=== PATIENT | female | born 1950 | race Caucasian/White ===

== ENCOUNTER 2017-05-03 12:48 | Inpatient (IN) ==
[2017-05-03 13:41] LABS: Basophils % 0.2 %; Hematocrit 42.1 % (35.3-44.9); Hemoglobin 14.3 g/dL (11.5-15.4); Immature Granulocytes % 0.3 % (0-4); Lymphocytes # 0.5 K/mcL (0.6-4.6); Lymphocytes % 8.7 %; Mean Corpuscular Hemoglobin 33.3 pg (28.0-33.3); Mean Corpuscular Volume 98.1 fL (83.0-100.0); Mean Platelet Volume 10.9 fL (9.4-12.4); Monocytes # 0.4 K/mcL (0.0-1.3); Monocytes % 6.5 %; Neutrophils # 4.9 K/mcL (1.6-8.9); Platelet Count 193 K/mcL (140-400); Red Blood Count 4.29 M/mcL (3.82-4.97); Red Cell Distribution Width 12.4 % (11.5-14.5); Segmented Neutrophils % 84.3 %
[2017-05-03 13:58] LABS: BUN/Creatinine Ratio 19 (6-26); Blood Urea Nitrogen 18 mg/dL (8-23); Calcium 9.5 mg/dL (8.6-10.3); Carbon Dioxide 30 mEq/L (23-29); Chloride 98 mEq/L (98-107); Glucose 114 mg/dL (70-105); Osmolality,Calculated 287 (280-300); Potassium 3.6 mEq/L (3.5-5.1); Sodium 137 mEq/L (136-145); eGFR For African Americans > 60 (> 60); eGFR For Non-African Americans > 60 (> 60)
[2017-05-03] MEDS ORDERED: Albuterol 2.5 MG/3 ML NEBULIZER IH ONE (14:01)
[2017-05-03] MEDS ORDERED: Ipratropium/Albuterol Neb 3 ML IH ONE (14:01)
[2017-05-03] MEDS ORDERED: Benzonatate 100 MG CAPSULE PO PRN (15:21)
[2017-05-03] MEDS ORDERED: methylPREDNISolone 125 MG/2 ML VIAL IVP ONE (15:22)
--- NOTE | 2017-05-03 16:11 | Emergency Department Note ---
Disposition Clinical Impression: COPD exacerbation, Hypoxia Disposition: Admitted As Inpatient Condition: Good SOB HPI - General Chief Complaint: ED Shortness of Breath/Dyspnea Stated Complaint: MORTEZA, cough Time Seen by Provider: 05/03/17 13:12 Source: patient Limitations: no limitations Nursing Notes Reviewed: Yes Vital Signs Reviewed: Yes - History of Present Illness Patient presents today for evaluation of shortness of breath and cough. Patient became sick earlier in March with a cold that she got over. Patient states that she felt good for a couple of days but has been feeling worse recently. Patient was seen by PCP earlier this week and placed on steroids as well as Levaquin. Patient has been taking this medication as prescribed and only has one day of medication left. Patient continues to feel worse with worsening cough. Patient's pulse ox is 94% resting in bed comfortably. She has never been diagnosed with COPD. But does smoke. She does not require home oxygen. She does have a nebulizer at home it has been but has been using nebulizers. She continues to use her inhaler multiple times a day with these medications. - Related Data Home Medications Medication Instructions Recorded Confirmed Aspirin Enteric Coated [Aspirin EC] 81 mg PO DAILY 05/03/17 05/03/17 Cholecalciferol (D-3) [Vitamin D] 1,000 unit PO DAILY 05/03/17 05/03/17 Lisinopril/Hydrochlorothiazide 1 each PO DAILY 05/03/17 05/03/17 [Zestoretic 20-12.5 mg Tablet] Multivit-Min/Iron/Folic/Lutein 1 each PO DAILY 05/03/17 05/03/17 [Centrum Silver Women Tablet] [place]-3/Dha/Epa/Fish Oil [Fish Oil 1,000 mg PO DAILY 05/03/17 05/03/17 1,000 mg Softgel] Paroxetine HCl [Paroxetine Cr] 12.5 mg PO DAILY 05/03/17 05/03/17 levoFLOXacin [Levofloxacin] 750 mg PO DAILY 05/03/17 05/03/17 predniSONE [PredniSONE] 20 mg PO BID 05/03/17 05/03/17 Allergies Allergy/AdvReac Type Severity Reaction Status Date / Time Sulfa (Sulfonamide Allergy Rash Verified 05/03/17 12:54 Antibiotics) Review of Systems: CONSTITUTIONAL: Night sweats No weight loss, weakness or fatigue. HEENT: Eyes: No visual changes. Ears, Nose, Throat: No hearing loss, difficulty talking or unable to swallow. SKIN: No rash or itching. CARDIOVASCULAR: No chest pain, chest pressure or chest discomfort. No palpitations or edema. RESPIRATORY: Shortness of breath and cough without sputum production GASTROINTESTINAL: No anorexia, nausea, vomiting or diarrhea. No abdominal pain or blood. GENITOURINARY: No burning on urination or hematuria. NEUROLOGICAL: No headache, dizziness, syncope, paralysis, ataxia, numbness or tingling in the extremities. No change in bowel or bladder control. MUSCULOSKELETAL: No muscle pain, back pain, joint pain or stiffness. Past Medical History - Past Medical History Medical history: Reports: cancer, hypertension Psychiatric history: Reports: depression - Social History Smoking Status: Former smoker Smokeless Tobacco Status: No Alcohol use: Reports: none Drug use: Reports: none Physical Exam General appearance: NAD, conversant Eyes: anicteric sclerae, moist conjunctivae; PERRL HENT: Atraumatic; oropharynx clear with moist mucous membranes and no mucosal ulcerations Neck: Normal inspection; Trachea midline; FROM, supple Lungs: Diffuse wheezing with associated rhonchi CV: RRR, no MRGs Abdomen: Soft, non-tender; no rebound or gaurding Extremities: No peripheral edema or extremity lymphadenopathy Skin: Normal temperature; no rash, ulcers or lesions Psych: Appropriate mood and affect Neuro: alert and oriented to person, place and time - General Limitations: no limitations General appearance: alert, in no apparent distress Course - Reevaluation(s) Reevaluation #1: Patient walked from the bed to the bathroom which was less than 10 steps and became hypoxic with a pulse ox of 88%. Patient will be admitted for hypoxia and likely COPD exacerbation. Blood work is unremarkable. EKG unremarkable. CTA negative for PE or pneumonia. - Consultations Consultation #1: Discussed with Dr. Kwadwo augustine. Vital Signs Temperature 98.1 F 05/03/17 12:51 Pulse Rate 96 05/03/17 12:51 Respiratory Rate 20 05/03/17 12:51 Blood Pressure 142/92 05/03/17 12:51 O2 Sat by Pulse Oximetry 94 05/03/17 12:51 Temperature 97.5 F L 05/03/17 18:46 Pulse Rate 72 05/03/17 18:12 Respiratory Rate 16 05/03/17 18:46 Blood Pressure 155/95 05/03/17 18:46 O2 Sat by Pulse Oximetry 96 05/03/17 18:12 Oxygen Delivery Oxygen Delivery Nasal Cannula Shortness of Breath/Dyspnea - Medical Records Medical records reviewed: Yes I reviewed the patient's medical records. - Lab Data Lab results reviewed: Yes I reviewed the patient's lab results. Result diagrams: 05/03/17 13:23 05/03/17 13:23 Lab Results 05/03/17 05/03/17 05/03/17 Range/Units 13:23 13:23 13:23 WBC 5.8 (4.3-11.1) K/mcL RBC 4.29 (3.82-4.97) M/mcL Hgb 14.3 (11.5-15.4) g/dL Hct 42.1 (35.3-44.9) % MCV 98.1 (83.0-100.0) fL MCH 33.3 (28.0-33.3) pg MCHC 34.0 (31.6-35.5) g/dL RDW 12.4 (11.5-14.5) % Plt Count 193 (140-400) K/mcL MPV 10.9 (9.4-12.4) fL Immature Gran % 0.3 (0-4) % Seg Neutrophils % 84.3 % Lymphocytes % 8.7 % Monocytes % 6.5 % Eosinophils % 0.0 % Basophils % 0.2 % Neutrophils # 4.9 (1.6-8.9) K/mcL Lymphocytes # 0.5 L (0.6-4.6) K/mcL Monocytes # 0.4 (0.0-1.3) K/mcL Eosinophils # 0.0 (0.0-0.6) K/mcL Basophils # 0.0 (0.0-0.2) K/mcL D-Dimer (0-500) ng/mLFEU Sodium 137 (136-145) mEq/L Potassium 3.6 (3.5-5.1) mEq/L Chloride 98 (98-107) mEq/L Carbon Dioxide 30 H (23-29) mEq/L BUN 18 (8-23) mg/dL Creatinine 0.93 (0.60-1.20) mg/dL Est GFR ( Amer) > 60 (> 60) Est GFR (Non-Af Amer) > 60 (> 60) BUN/Creatinine Ratio 19 (6-26) Glucose 114 H (70-105) mg/dL Calculated Osmolality 287 (280-300) Lactic Acid 1.8 (0.5-2.2) mmol/L Calcium 9.5 (8.6-10.3) mg/dL Troponin I (< 0.04) ng/mL B-Natriuretic Peptide (Less than 100) pg/mL 05/03/17 05/03/17 05/03/17 Range/Units 13:23 13:23 13:23 WBC (4.3-11.1) K/mcL RBC (3.82-4.97) M/mcL Hgb (11.5-15.4) g/dL Hct (35.3-44.9) % MCV (83.0-100.0) fL MCH (28.0-33.3) pg MCHC (31.6-35.5) g/dL RDW (11.5-14.5) % Plt Count (140-400) K/mcL MPV (9.4-12.4) fL Immature Gran % (0-4) % Seg Neutrophils % % Lymphocytes % % Monocytes % % Eosinophils % % Basophils % % Neutrophils # (1.6-8.9) K/mcL Lymphocytes # (0.6-4.6) K/mcL Monocytes # (0.0-1.3) K/mcL Eosinophils # (0.0-0.6) K/mcL Basophils # (0.0-0.2) K/mcL D-Dimer < 215 (0-500) ng/mLFEU Sodium (136-145) mEq/L Potassium (3.5-5.1) mEq/L Chloride (98-107) mEq/L Carbon Dioxide (23-29) mEq/L BUN (8-23) mg/dL Creatinine (0.60-1.20) mg/dL Est GFR ( Amer) (> 60) Est GFR (Non-Af Amer) (> 60) BUN/Creatinine Ratio (6-26) Glucose (70-105) mg/dL Calculated Osmolality (280-300) Lactic Acid (0.5-2.2) mmol/L Calcium (8.6-10.3) mg/dL Troponin I < 0.03 (< 0.04) ng/mL B-Natriuretic Peptide 10 (Less than 100) pg/mL - Radiology Data Radiology results reviewed: Yes I reviewed the patient's radiology results. - EKG Data EKG attestation: Yes I reviewed and interpreted this EKG. EKG results narrative: EKG shows sinus rhythm with ventricular 91. [place] interval 126. QRS 84. QTC 409. Patient has no significant ST elevations or depressions. No previous EKG for comparison. Attestation Statement - Attestation Attestation: I, Edu Aldana, examined this patient and my medical decision-making was reviewed with the CRANIOLOGIST/PA/Advanced Practice Nurse/Resident Physician. I agree with the documented findings, disposition and treatment plan as described except to the extent set forth below. 66-year-old female presents emergency Department with concerns of difficulty in breathing. Patient was evaluated by urgent care within the past week and given prescription of levofloxacin and prednisone which have mildly improved the patient's symptoms. Patient states her symptoms have not resolved she wanted further evaluation. Patient has wheezing in the bilateral posterior lung espinosa on evaluation emergency department. She desatted to 89% with minimal ambulation. CTA of the chest does not show evidence of PE. This is likely an acute COPD exacerbationand has a history of tobacco use. Patient given steroids and breathing treatments in the emergency department and will be admitted to the hospital for further care and evaluation.
[2017-05-03] MEDS ORDERED: Acetaminophen 325 MG TABLET PO PRN (20:41)
[2017-05-03] MEDS ORDERED: Naloxone 0.4 MG/ML INJ IVP PRN (20:41)
[2017-05-03] MEDS ORDERED: Ondansetron 4 MG/2 ML VIAL IVP PRN (20:41)
--- NOTE | 2017-05-03 20:47 | Event Note ---
Date of Encounter: 05/03/17 Time of Encounter: 20:46 1. Acute COPD exacerbation likely secondary to acute bacterial bronchitis Continue azithromycin, Solu-Medrol, DuoNeb nebs and oxygen therapy Influenza test to be performed 2. Hypertension, stable consider hydralazine IV as needed 3. Vitamin D deficiency, continue supplements 4. Depression, continue SSRI Patient will be admitted for observation. Full code. Time spent on this admission 40 minutes H&P will be completed by Corey Yeager NP
--- NOTE | 2017-05-03 20:54 | Internal Med History&Physical ---
<Corey Yeager - Last Filed: 05/03/17 21:33> Date of Encounter: 05/03/17 Time of Encounter: 20:00 Assessment and Plan (1) Acute exacerbation of COPD with asthma Current visit: Yes Status: Acute Acue exacerbation of COPD. Pt. reports worsening SOB since Wednesday as well as cough. Concern was for possible PE, but CTA negative. 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 Influenza A&B ordered. On exam, pts. lungs have wheezes present. Solu-Medrol 40 mg every 8. Azithromycin 500 mg daily for bronchitis coverage. DuoNeb's every 6 scheduled. Supplemental O2 titration and SPO2 monitoring when necessary. Pt. reports some dizziness w/ ambulation. Falls/safety precautions. Pt. discussed w/Dr. Fraga who is in agreement w/plan of care. Pt. is moderate risk for further morbidity and respiratory distress based on current sx, hx of tobacco abuse, and risk factors. Observation. (2) HTN (hypertension) Current visit: Yes Status: Chronic Hx of chronic HTN. Monitor pt. and VS. Continue patient's lisinopril/ hydrochlorothiazide. Consider adding IVP hydralazine if pt. becomes hypertensive. Qualifiers: Hypertension type: essential hypertension Qualified Code(s): I10 - Essential (primary) hypertension (3) Vitamin D deficiency Current visit: Yes Status: Chronic Hx of chronic vitamin D deficiency. Continue pts. vitamin D supplementation. Vitamin D level ordered in a.m. labs. (4) Depression Current visit: Yes Status: Chronic Hx of chronic depression. Continue pts. Paroxetine HCL. Qualifiers: Depression Type: unspecified Qualified Code(s): F32.9 - Major depressive disorder, single episode, unspecified (5) DVT prophylaxis Current visit: Yes Status: Acute Lovenox 40 mg 0600 for DVT prophylaxis. Monitor pt. for signs of bleeding. Internal Medicine - H&P: HPI Chief complaint: SOB/Dyspnea Admitted From: Emergency Dept Plans for Post Hospital Care: Home History of present illness: Ms. Hung is a 66 year old female with medical hx of HTN, previous breast cancer resulting in lumpectomy, COPD, vitamin D deficiency, and depression presents from the ED w/chief complaint of SOB and dyspnea. Pt. reports she has had intermittent SOB since April 02, but sx became worse on Wednesday with cough. Pt. reports sputum was sometimes blood-tinged d/t throat irritation but sputum is now clear to yellow. Pt. reports she went to Urgent Care and was told she had pneumonia and was placed on PO levaquin. Took all but one pill but sx worsened. Pt. reports some dizziness w/SOB but denies fever, chills, nausea, vomiting, headache, changes in vision, chest pain, palpitations, abdominal pain , diarrhea, constipation, lightheadedness, pre-syncope, or syncope. Past Med Surg Social Fam HX - Past Medical History Source: patient, old records reviewed Medical history: cancer (Breast cancer resulting in lumpectomy), hypertension Psychiatric history: depression - Social History Smoking Status: Former smoker Packs per day: 1/2 - 1 PPD - Reports quitting New Years Day Smokeless Tobacco Status: No Alcohol use: none Drug use: none Occupational status: employed Current living situation: Home Activity Level: Independent ambulation, Very active Recent Out of Country Travel Within the Last 8 Weeks: No Exposure or Possible Exposure to Illness During Travel: No - Family History Mother Race: Family Member Ethnicity: Non- Living Status: Age at : 81 Cause of : Glioblastoma Hx Family Cancer: Yes (Glioblastoma) Father Race: Family Member Ethnicity: Non- Living Status: Age at : 71 Cause of : Oat cell carcinoma Hx Family Cancer: Yes (Oat cell carcinoma) Brother Race: Family Member Ethnicity: Non- Living Status: Age at : 66 Cause of : Bladder cancer Hx Family Cancer: Yes (Bladder) Internal Medicine - H&P: Meds Aspirin Enteric Coated [Aspirin EC] 81 mg PO DAILY 05/03/17 [History] Cholecalciferol (D-3) [Vitamin D] 1,000 unit PO DAILY 05/03/17 [History] Lisinopril/Hydrochlorothiazide [Zestoretic 20-12.5 mg Tablet] 1 each PO DAILY [History] Multivit-Min/Iron/Folic/Lutein [Centrum Silver Women Tablet] 1 each PO DAILY 12/11 [History] [place]-3/Dha/Epa/Fish Oil [Fish Oil 1,000 mg Softgel] 1,000 mg PO DAILY 05/03/17 [History] Paroxetine HCl [Paroxetine Cr] 12.5 mg PO DAILY 05/03/17 [History] levoFLOXacin [Levofloxacin] 750 mg PO DAILY 05/03/17 [History] predniSONE [PredniSONE] 20 mg PO BID 05/03/17 [History] 3 Allergy/AdvReac Type Severity Reaction Status Date / Time Sulfa (Sulfonamide Allergy Rash Verified 05/03/17 12:54 Antibiotics) codeine AdvReac Gastrointestinal Verified 05/03/17 20:21 Upset All Systems PM: A 10-system review of systems was performed and is negative for pertinent findings except as documented above in the HPI. - Constitutional Constitutional: no chills, no fever(s), no night sweats - EENT Eyes: no change in vision, no discharge, no pain, no photophobia Ears: no ear discharge, no ear pain, no tinnitus Nose, mouth and throat: no dysphagia, no nasal discharge, no neck pain, no sore throat - Breasts Breasts: as per HPI - Cardiovascular Cardiovascular ROS IM: as per HPI, dyspnea, dyspnea on exertion, no chest pain, no diaphoresis, no lightheadedness, no palpitations, no syncope - Respiratory Respiratory: as per HPI, cough, dyspnea, dyspnea on exertion, wheezing, change in phlegm color, no excessive phlegm production - Gastrointestinal Gastrointestinal: no abdominal pain, no diarrhea, no hematemesis, no hematochezia, no melena, no nausea, no vomiting - Genitourinary Genitourinary: no change in urinary stream, no dysuria, no flank pain, no hematuria Menstruation: as per HPI - Musculoskeletal Musculoskeletal ROS IM: no numbness, no tingling - Integumentary Integumentary IM: no rash, no unusual bruising - Neurological Neurological ROS: as per HPI, dizziness, no confusion, no convulsions, no focal weakness, no numbness, no tingling, no tremor(s) - Psychiatric Psychiatric: as per HPI - Endocrine Endocrine IM: as per HPI - Hematologic/Lymphatic Hematologic/Lymphatic: no easy bruising - Allergic/Immunologic Allergic/Immunologic: as per HPI - Constitutional Vitals: Temp Pulse Resp BP Pulse Ox 97.5 F L 72 16 155/95 96 05/03/17 18:46 05/03/17 18:12 05/03/17 18:46 05/03/17 18:46 05/03/17 18:12 General appearance: Present: cooperative, mild distress (SOB), A&O X 3, pleasant , answers questions appropriately - Head Head exam: Present: atraumatic, normocephalic - Eye Eye exam: Present: PERRL, conjuntiva pink, sclera anicteric Pupils: Present: PERRL - ENT ENT exam: Present: normal exam - Neck Neck exam general surgery: Present: normal inspection, supple, trachea midline. Absent: lymphadenopathy - Respiratory Respiratory exam: Present: wheezes (Bilaterally in all lobes). Absent: accessory muscle use, rales, rhonchi - Cardiovascular Cardiovascular exam: Present: RRR, +S1, +S2. Absent: diastolic murmur, gallop, rubs, systolic murmur - GI/Abdominal GI/Abdominal exam: Present: normal bowel sounds, soft, no peritoneal signs. Absent: distended, tenderness - Rectal Rectal exam: Present: deferred - Additional comments: exam deferred. - Extremities Exam Extremities exam: Present: warm, radial pulses palpable and symmetrical. Absent : calf tenderness, cyanotic, pedal edema - Back Exam Back exam: Present: normal inspection - Neurological Exam Neurological exam: Present: CN II-XII intact, oriented X3, no focal deficits. Absent: pronater drift, facial droop, speech deficit - Psychiatric Psychiatric exam: Present: normal affect, normal mood - Skin Skin exam: Present: dry, intact Internal Med - H&P Results - Labs CBC & Chem 7: 05/03/17 13:23 05/03/17 13:23 - EKG Data EKG shows normal: sinus rhythm - EKG Data Prior EKG available for review: no EKG comments: 05/03/17 21:15 EKG dated 05/03/17 shows sinus rhythm with possible left atrial enlargement and moderate ST depression. - Diagnostic Studies Chest x-ray Additional comments: Impressions Chest X-Ray 05/03/17 13:13 IMPRESSION: No acute cardiopulmonary disease. D/ / Ciro Canas MD / Ciro Canas MD Interpreting Provider: Ciro Canas MD Other Images Additional comments: Impressions Chest CTA 05/03/17 15:21 IMPRESSION: No evidence of pulmonary embolism or acute pulmonary abnormality. D/ / Aries Gurrola / Aries Gurrola Interpreting Provider: Aries Gurrola <Candelario Boone H - Last Filed: 05/04/17 04:02> Date of Encounter: 05/04/17 Internal Medicine - H&P: HPI History of present illness: Ms. Hung is a 66 year old female All Systems PM: A 10-system review of systems was performed and is negative for pertinent findings except as documented above in the HPI. - Constitutional Vitals: Temp Pulse Resp BP Pulse Ox 98.1 F 67 16 122/65 94 05/04/17 03:37 05/04/17 03:37 05/04/17 03:44 05/04/17 03:37 05/04/17 03:44 Internal Med - H&P Results - Labs CBC & Chem 7: 05/03/17 13:23 05/03/17 13:23 - Attending Attestation 1. Acute COPD exacerbation likely secondary to acute bacterial bronchitis Continue azithromycin, Solu-Medrol, DuoNeb nebs and oxygen therapy Influenza test to be performed 2. Hypertension, stable consider hydralazine IV as needed 3. Vitamin D deficiency, continue supplements 4. Depression, continue SSRI Patient will be admitted for observation. Full code. Time spent on this admission 40 minutes I have personally performed a face to face evaluation on this patient. I have reviewed and agree with the care plan. History and Exam by me shows:
[2017-05-03] MEDS ORDERED: Ipratropium/Albuterol Neb 3 ML ONE (21:08)
[2017-05-03] MEDS: Ipratropium/Albuterol Neb 3 ML IH SCH (22:04)
[2017-05-03] MEDS: Azithromycin 500 MG in D5% in Water 250 ML IVPB SCH (22:38)
[2017-05-04 00:09] LABS: Adenovirus Not Detected (Not Detect); Bordetella Pertussis Not Detected (Not Detect); Chlamydophila pneumoniae Not Detected (Not Detect); Coronavirus 229E Not Detected (Not Detect); Coronavirus HKU1 Not Detected (Not Detect); Coronavirus NL63 Not Detected (Not Detect); Coronavirus OC43 Not Detected (Not Detect); Human Metapneumovirus Not Detected (Not Detect); Human Rhinovirus/Enterovirus Not Detected (Not Detect); Influenza A Subtype 2009 H1 Not Detected (Not Detect); Influenza A Untypeable Not Detected (Not Detect); Influenza B Not Detected (Not Detect); Mycoplasma pneumoniae Not Detected (Not Detect); Parainfluenza Virus 1 Not Detected (Not Detect); Parainfluenza Virus 2 Not Detected (Not Detect); Parainfluenza Virus 3 Not Detected (Not Detect); Parainfluenza Virus 4 Not Detected (Not Detect); Respiratory Syncytial Virus Not Detected (Not Detect)
[2017-05-04] MEDS: MethylPREDNISolone 40 MG/ML VIAL IVP SCH ×3 (00:56→16:13)
[2017-05-04] MEDS: Ipratropium/Albuterol Neb 3 ML IH SCH ×4 (03:44→21:24)
[2017-05-04 04:48] LABS: Hematocrit 38.7 % (35.3-44.9); Hemoglobin 13.5 g/dL (11.5-15.4); Mean Corpuscular HGB Conc 34.9 g/dL (31.6-35.5); Mean Corpuscular Hemoglobin 33.8 pg (28.0-33.3); Mean Corpuscular Volume 96.8 fL (83.0-100.0); Mean Platelet Volume 11.1 fL (9.4-12.4); Platelet Count 181 K/mcL (140-400); Red Cell Distribution Width 12.2 % (11.5-14.5)
[2017-05-04 04:51] LABS: Hemoglobin A1C 4.8 %
[2017-05-04 05:13] LABS: Alanine Aminotransferase 14 Units/L (7-52); Albumin 4.1 g/dL (3.5-5.7); Albumin/Globulin Ratio 1.6 (1.1-2.2); Alkaline Phosphatase 55 Units/L (34-104); Aspartate Amino Transferase 13 Units/L (13-39); BUN/Creatinine Ratio 24 (6-26); Bilirubin,Total 0.4 mg/dL (0.3-1.0); Blood Urea Nitrogen 18 mg/dL (8-23); Calcium 9.5 mg/dL (8.6-10.3); Carbon Dioxide 30 mEq/L (23-29); Chloride 102 mEq/L (98-107); Chol/HDL Ratio 3.2 (0-4.9); Cholesterol 215 mg/dL (< 200); Globulin 2.6 g/dL (2.4-3.5); Glucose 135 mg/dL (70-105); HDL Cholesterol 67 mg/dL (40-59); LDL Cholesterol,Calculated 133 mg/dL (0-99); Magnesium 2.1 mg/dL (1.6-2.6); Osmolality,Calculated 292 (280-300); Potassium 3.6 mEq/L (3.5-5.1); Sodium 139 mEq/L (136-145); Total Protein 6.7 g/dL (6.4-8.9); Triglycerides 77 mg/dL (< 150); eGFR For African Americans > 60 (> 60); eGFR For Non-African Americans > 60 (> 60)
[2017-05-04 05:38] LABS: Large Platelets Present (Not Present); Platelet Estimate Normal (Normal)
[2017-05-04 08:17] LABS: Neutrophils # 2.8 K/mcL (1.6-8.9); Segmented Neutrophils % 75.6 %
[2017-05-04 08:18] LABS: Immature Granulocytes % 0.3 % (0-4); Lymphocytes # 0.6 K/mcL (0.6-4.6); Lymphocytes % 16.8 %
[2017-05-04] MEDS: Multivit/Ca/Min/Fe/FA 1 TAB TABLET PO SCH (08:38)
[2017-05-04] MEDS: Aspirin Enteric Coated 81 MG Tablet PO SCH (08:39)
[2017-05-04] MEDS: FISH OIL 1000 MG PO SCH (08:39)
[2017-05-04] MEDS: Cholecalciferol (D-3) 1,000 UNIT TABLET PO SCH (08:39)
[2017-05-04] MEDS: Lisinopril-HCTZ 20-12.5mg TABLET PO SCH (10:36)
--- NOTE | 2017-05-04 13:52 | Internal Med Progress Note ---
Date of Encounter: 05/04/17 Time of Encounter: 13:42 - Assessment and plan (1) Acute respiratory failure with hypoxia Current Visit: Yes Status: Acute Assessment and plan: Oxygen to saturations dropped to 80% on room air in ED; does not wear oxygen at home. Secondary to acute COPD exacerbation. Continue treating acute COPD exacerbation and weaning oxygen as able (2) COPD exacerbation Current Visit: Yes Status: Acute Assessment and plan: has underlying COPD; current smoker. Recently treated with outpatient antibiotics and steroids. Presented with worsening shortness of breath, wheezing and hypoxia. Symptoms improved with IV steroids and breathing treatments. Continue IV azithromycin, IV steroids and breathing treatments. De -escalate ATB and steroids to PO continues to improve in the morning. (3) HTN (hypertension) Current Visit: Yes Status: Chronic Assessment and plan: per hx. continue home BP medication. Monitor BP and titrate PRN Qualifiers: Hypertension type: essential hypertension Qualified Code(s): I10 - Essential (primary) hypertension (4) DVT prophylaxis Current Visit: Yes Status: Acute Assessment and plan: lovenox - Subjective Interval history: Seen and examined at bedside; patient is new to me. Information obtained from chart review and patient report. He says she feels significantly improved. No chest pain or shortness of breath. Says she feels better will let to go home today. She does not wear oxygen at home. Discussed with RN who noted patient was unsteady and seemed wobbly with ambulation. Discussed with patient and she is agreeable to stay for 1 more night. We will reassess in the morning. If she continues to improve then will discharge home tomorrow. No chest pain or shortness of breath on my exam. Has intermittent, productive cough at times. - Constitutional Vitals: Temp Pulse Resp BP Pulse Ox 98.8 F 76 16 122/71 90 05/04/17 11:19 05/04/17 11:19 05/04/17 11:19 05/04/17 11:19 05/04/17 12:06 General appearance: Present: cooperative, A&O X 3, pleasant, answers questions appropriately - Head Head exam: Present: atraumatic, normocephalic - Eye Eye exam: Present: PERRL, conjuntiva pink, sclera anicteric Pupils: Present: PERRL - Neck Neck exam general surgery: Present: supple, trachea midline. Absent: lymphadenopathy - Respiratory Respiratory exam: Present: CTAB. Absent: accessory muscle use, rales, rhonchi, wheezes - Cardiovascular Cardiovascular exam: Present: RRR, +S1, +S2. Absent: diastolic murmur, gallop, rubs, systolic murmur - GI/Abdominal GI/Abdominal exam: Present: normal bowel sounds, soft, no peritoneal signs. Absent: distended, tenderness - Extremities Exam Extremities exam: Present: warm, radial pulses palpable and symmetrical. Absent : calf tenderness, cyanotic, pedal edema - Neurological Exam Neurological exam: Present: CN II-XII intact, oriented X3, no focal deficits. Absent: pronater drift, facial droop, speech deficit - Skin Skin exam: Present: dry, intact Internal Medicine: Result - Labs CBC & Chem 7: 05/04/17 04:04 05/04/17 04:04 Labs: Short CBC 05/04/17 Range/Units 04:04 WBC 3.7 L (4.3-11.1) K/mcL Hgb 13.5 (11.5-15.4) g/dL Hct 38.7 (35.3-44.9) % Plt Count 181 (140-400) K/mcL Neutrophils # 2.8 (1.6-8.9) K/mcL BMP 05/04/17 04:04 Sodium 139 Potassium 3.6 Chloride 102 Carbon Dioxide 30 H BUN 18 Creatinine 0.76 Glucose 135 H Calcium 9.5 Liver Function 05/04/17 Range/Units 04:04 Total Bilirubin 0.4 (0.3-1.0) mg/dL AST 13 (13-39) Units/L ALT 14 (7-52) Units/L Alkaline Phosphatase 55 (34-104) Units/L Albumin 4.1 (3.5-5.7) g/dL - ABG Interpretation ABG results: PT/INR, D-dimer D-Dimer < 215 ng/mLFEU (0-500) 05/03/17 13:23 Consult Discharge Plan - Plan Referrals: Dariela Cedeño DO [Primary Care Provider] -
[2017-05-04] MEDS: Nicotine 21 MG PATCH.TD24 TD SCH (17:00)
--- NOTE | 2017-05-04 20:15 | Electrocardiograph Report ---
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
[2017-05-04] MEDS: Azithromycin 500 MG in D5% in Water 250 ML IVPB SCH (21:09)
[2017-05-05] MEDS: MethylPREDNISolone 40 MG/ML VIAL IVP SCH ×3 (00:10→14:54)
[2017-05-05] MEDS: Ipratropium/Albuterol Neb 3 ML IH SCH ×3 (04:06→15:40)
[2017-05-05] MEDS ORDERED: *HR* Enoxaparin 40 MG/0.4 ML SYRINGE SQ SCH (06:00)
[2017-05-05] MEDS: Lisinopril-HCTZ 20-12.5mg TABLET PO SCH (08:47)
[2017-05-05] MEDS: Multivit/Ca/Min/Fe/FA 1 TAB TABLET PO SCH (08:47)
[2017-05-05] MEDS: Cholecalciferol (D-3) 1,000 UNIT TABLET PO SCH (08:48)
[2017-05-05] MEDS: Aspirin Enteric Coated 81 MG Tablet PO SCH (08:48)
[2017-05-05] MEDS: Nicotine 21 MG PATCH.TD24 TD SCH (09:17)
[2017-05-05] MEDS: FISH OIL 1000 MG PO SCH (09:17)
[2017-05-05 12:41] VITALS: BP 110/67
--- NOTE | 2017-05-05 14:26 | Discharge Summary ---
Date of Encounter: 05/05/17 Time of Encounter: 14:22 - Discharge Diagnosis (1) Acute respiratory failure with hypoxia Priority: Primary Status: Resolved Comments: Oxygen to saturations dropped to 80% on room air in ED; does not wear oxygen at home. Chest CTA negative for pneumonia, no evidence pulmonary embolism. Secondary to acute COPD exacerbation. She was successfully weaned off oxygen and adequately will oxygenating on room air at time of discharge. (2) COPD exacerbation Priority: Primary Status: Acute Comments: has underlying COPD; current smoker. Recently treated with outpatient antibiotics and steroids. Presented with worsening shortness of breath, wheezing and hypoxia. CXR without evidence of pneumonia, respiratory PCR negative. Symptoms improved with IV steroids and breathing treatments. Continue IV azithromycin, IV steroids and breathing treatments. Symptoms significantly improved at time of discharge. Discharge home on [place], steroid burst. Smoking cessation advised. (3) HTN (hypertension) Priority: Primary Status: Chronic Comments: per hx. BP controlled. Cont home BP medications Qualifiers: Hypertension type: essential hypertension Qualified Code(s): I10 - Essential (primary) hypertension (4) Hyperlipemia Priority: Primary Status: Acute Comments: LDL 133; statin initiated Qualifiers: Hyperlipidemia type: pure hypercholesterolemia Qualified Code(s): E78.00 - Pure hypercholesterolemia, unspecified; E78.0 - Pure hypercholesterolemia - Discharge Medications Prescriptions: Atorvastatin [Lipitor] 20 mg PO HS #30 tablet Azithromycin [Azithromycin 6-Tab Pack] 250 mg PO PER PKG DI #6 tab Home Medications: Aspirin Enteric Coated [Aspirin EC] 81 mg PO DAILY 05/03/17 [History] Cholecalciferol (D-3) [Vitamin D] 1,000 unit PO DAILY 05/03/17 [History] Lisinopril/Hydrochlorothiazide [Zestoretic 20-12.5 mg Tablet] 1 each PO DAILY [History] Multivit-Min/Iron/Folic/Lutein [Centrum Silver Women Tablet] 1 each PO DAILY 12/11 [History] [place]-3/Dha/Epa/Fish Oil [Fish Oil 1,000 mg Softgel] 1,000 mg PO DAILY 05/03/17 [History] Paroxetine HCl [Paroxetine Cr] 12.5 mg PO DAILY 05/03/17 [History] Atorvastatin [Lipitor] 20 mg PO HS #30 tablet 01/10/18 [Rx] Azithromycin [Azithromycin 6-Tab Pack] 250 mg PO PER PKG DI #6 tab 05/05/17 [Rx] predniSONE [PredniSONE] 40 mg PO DAILY #10 05/05/17 [Rx] Allergies/Adverse Reactions: 3 Allergy/AdvReac Type Severity Reaction Status Date / Time Sulfa (Sulfonamide Allergy Rash Verified 05/03/17 12:54 Antibiotics) codeine AdvReac Gastrointestinal Verified 05/03/17 20:21 Upset Date of admission: 05/04/17 13:54 Primary care physician: Master Mcclelland Discharging clinician: Rossana Jones Anticipated date of discharge: 05/05/17 - Patient Status Disposition: Home, Self-Care Condition: Good Functional capacity at discharge: independent ambulation Overall status at discharge: patient is back to baseline - Discharge Instructions Instructions: Prednisone (By mouth), Azithromycin (By mouth), How to Stop Smoking (DC), Chronic Obstructive Pulmonary Disease (DC) Follow Up With: Dariela Cedeño DO [Primary Care Provider] - 05/11/17 9:30 am - Diet and Activity Activity: increase activity as tolerated Diet: advance to your usual diet Interval History: Seen and examined at bedside. Patient says she feels significantly better and would like to discharge home today. Had a lengthy discussion with her regarding smoking cessation. She denies chest pain has minimal shortness of breath with exertion. Productive cough at times but overall improved. Hospital course: See assessment and plan for aspirin a coursehospital course - Time Spent with Patient Total time spent providing and/or coordinating discharge services: - Constitutional Vitals: Temp Pulse Resp BP Pulse Ox 98.1 F 85 18 110/67 91 05/05/17 12:40 05/05/17 12:40 05/05/17 12:40 05/05/17 12:40 05/05/17 12:40 General appearance: Present: cooperative, A&O X 3, pleasant, answers questions appropriately - Head Head exam: Present: atraumatic, normocephalic - Eye Eye exam: Present: PERRL, conjuntiva pink, sclera anicteric Pupils: Present: PERRL - Neck Neck exam general surgery: Present: supple, trachea midline. Absent: lymphadenopathy - Respiratory Respiratory exam: Present: CTAB. Absent: accessory muscle use, rales, rhonchi, wheezes - Cardiovascular Cardiovascular exam: Present: RRR, +S1, +S2. Absent: diastolic murmur, gallop, rubs, systolic murmur - GI/Abdominal GI/Abdominal exam: Present: normal bowel sounds, soft, no peritoneal signs. Absent: distended, tenderness - Extremities Exam Extremities exam: Present: warm, radial pulses palpable and symmetrical. Absent : calf tenderness, cyanotic, pedal edema - Neurological Exam Neurological exam: Present: CN II-XII intact, oriented X3, no focal deficits. Absent: pronater drift, facial droop, speech deficit - Skin Skin exam: Present: dry, intact
== END 2017-05-05 16:36 | disposition home or self-care (01) | DRG 190 ==
LOC: EMEROO 12:48 → 3BNU 12:48
PROVIDERS: ADMIT Registered Nurse; ATTEND Registered Nurse